=== PATIENT | male | born 1955 | race Caucasian/White ===

== ENCOUNTER 2024-02-01 14:15 | Outpatient (RCR) | payer MEDICARE, SELFPAY ==
--- NOTE | 2024-02-12 13:46 | ONC.NURNOTE ---
Dx: Malignant neoplasm of the left lung
== END 2024-07-30 23:59 | disposition home or self-care (01) ==
LOC: CCIC 14:15
PROVIDERS: PCP Internal Medicine; Visit Provider Clinical Nurse Specialist
DX: C78.02 Secondary malignant neoplasm of left lung (principal); C78.01 Secondary malignant neoplasm of right lung
CPT/HCPCS: 99211